=== PATIENT | female | born 1980 | race Caucasian/White ===

== ENCOUNTER 2021-05-28 10:15 | Outpatient (CLI) | payer BC ==
--- NOTE | 2021-05-28 12:21 | Ultrasound Report ---
PROCEDURE: Pelvic w/Transvaginal INDICATIONS: DYSMENORRHEA TECHNIQUE: Real-time scanning was performed of the pelvic organs, with image documentation. Additional endovagi nal scanning was necessary due to incomplete visualization of the adnexal and endometrial structures by transabdominal scanning. COMPARISON: None. FINDINGS: UTERUS: Retroverted, measuring 10.3 x 5 x 5.7 cm. Mildly heterogeneous echotexture. The endometrial t hickness measures 5.9 mm. RIGHT OVARY: 4.5 x 4.4 x 4.1 cm. Color-flow projects over the ovarian tissue. A hypoechoic lesion wit h internal echoes is seen, measuring up to 4.1 cm. LEFT OVARY: 4.7 x 3.6 x 3.5 cm. Color-flow projects over the ovarian tissue. A hypoechoic lesion with internal echoes is seen, measuring up to 3.9 cm. OTHER: None. IMPRESSION: 1.Bilateral hypoechoic lesions in the ovaries, favored to represent endometriomas. Reviewed by: Jose Juan Donaldson MD on 05/28/2021 12:19 PM PST Approved by: Jose Juan Donaldson MD on 05/28/2021 12:19 PM PST Station ID: [id number]
== END 2021-05-28 10:16 | disposition home or self-care (01) ==
LOC: DI 10:15
PROVIDERS: ATTEND Obstetrics & Gynecology
DX: N94.6 Dysmenorrhea, unspecified (principal); R93.89 Abnormal findings on diagnostic imaging of other specified body structures

== ENCOUNTER 2022-06-21 12:59 | Outpatient (CLI) | payer BC ==
--- NOTE | 2022-06-24 09:22 | Mammography Report ---
BILATERAL DIGITAL SCREENING MAMMOGRAM 3D/2D: 06/21/2022 CLINICAL: Routine screening. Baseline exam. Mother with breast cancer. No prior exams were available for comparison. Both breasts are heterogeneously dense, which may obscure small masses (category c / 51-75% glandular tissue). There is a 1.1 cm oval high density focal asymmetry with fine punctate calcifications in the left ramez ast at 1 o'clock middle depth. No other significant masses, calcifications, or other findings are seen in either breast. IMPRESSION: INCOMPLETE: NEEDS ADDITIONAL IMAGING EVALUATION The 1.1 cm oval high density focal asymmetry in the left breast is indeterminate. Additional views w ith possible ultrasound are recommended. Based on Tyrer-Cuzick model (a risk assessment model), the patient's lifetime risk is 35.1% and her 1 0 year risk is 5.4%. If a patient has an elevated risk, a more comprehensive evaluation should be con sidered and/or a referral to a genetic counselor. The [place] [employer], [place] [employer], and NCCN Guidelines advise the consideration of Breast MRI as an adjunct to screening mammog ortiz in patients whose "Lifetime risk to develop breast cancer" is 20% or higher. This exam was interpreted at Station ID: [id number]. NOTE: For mammograms, a report in lay terms will be sent to the patient. Approximately 15% of breast malignancies will not be visualized mammographically. In the management of a palpable breast mass, a negative mammogram must not discourage biopsy of a clinically suspicious lesion. Electronically Signed By: Pradeep Dominguez M.D. aty/penrad:06/21/2022 18:27:17 ACR BI-RADS Category 0: Incomplete 3340F PARENCHYMAL PATTERN: (D) - The breast(s) demonstrate(s) heterogeneously dense fibroglandular parenchy ma. BI-RADS CATEGORY: (0) - 0 Mammo and [place] [id number] Immediate follow-up LATERALITY: (L)
== END 2022-06-21 13:00 | disposition home or self-care (01) ==
LOC: DI 12:59
PROVIDERS: ATTEND Nurse Practitioner Family
DX: Z12.31 Encounter for screening mammogram for malignant neoplasm of breast (principal); R92.8 Other abnormal and inconclusive findings on diagnostic imaging of breast; Z80.3 Family history of malignant neoplasm of breast

== ENCOUNTER 2022-07-12 12:41 | Outpatient (CLI) | payer BC ==
--- NOTE | 2022-07-15 11:44 | Ultrasound Report ---
LIMITED ULTRASOUND OF LEFT BREAST: 07/12/2022 CLINICAL: Patient returns today to evaluate a focal asymmetry in the left breast. Comparison is made to exams dated: 07/12/2022 mammogram and 06/21/2022 mammogram - [facility]. Color flow and real-time ultrasound of the left breast 3-4 o'clock region were performed. Woody scal e images of the real-time examination were reviewed. There is a 1.1 cm x 1.2 cm x 0.8 cm irregular mass with an indistinct margin in the left breast at 4 o'clock middle depth 4 cm from the nipple. This irregular mass is hypoechoic but of mixed echogenici ty with some posterior acoustic shadow. This correlates with mammography findings. Color flow imagin g demonstrates that there is no vascularity present. IMPRESSION: SUSPICIOUS OF MALIGNANCY The 1.1 cm x 1.2 cm x 0.8 cm irregular mass in the left breast most likely is a degenerating fibroade noma and is at a low suspicion for malignancy. The patient reports remote benign biopsy in this darcie st in this area, but no clip is seen on mammogram and it cannot be verified that the mass identified was biopsied. Therefore an ultrasound guided biopsy is recommended unless prior images and records be come available. The patient is agreeable with ultrasound guided biopsy at this time. Findings and recommendations were conveyed to the patient at time of exam. This exam was interpreted at Station ID: [id number]. Electronically Signed By: Isabel vo/:07/12/2022 14:10:41 Ultrasound BI-RADS: 4a Low suspicion for malignancy BI-RADS CATEGORY: (4a) - Low Susp Biopsy [id number] Immediate follow-up LATERALITY: (L)
--- NOTE | 2022-07-15 11:44 | Mammography Report ---
UNILATERAL LEFT DIGITAL DIAGNOSTIC MAMMOGRAM 3D/2D: 07/12/2022 CLINICAL: Patient returns today to evaluate a focal asymmetry in the left breast. Comparison is made to exam dated: 06/21/2022 mammogram - [facility]. The left breast is heterogeneously dense, which may obscure small masses (category c / 51-75% glandul ar tissue). There is a 1.3 cm oval high density mass with a microlobulated margin and heterogeneous rim calcifica tions in the left breast at 4 o'clock anterior depth. This is seen in additional views. No other significant masses or calcifications are seen in the breast. IMPRESSION: INCOMPLETE: NEEDS ADDITIONAL IMAGING EVALUATION The 1.3 cm oval high density mass in the left breast remains indeterminate. An ultrasound is recomme nded. This was performed immediately following this exam. Based on Tyrer-Cuzick model (a risk assessment model), the patient's lifetime risk is 35.1% and her 1 0 year risk is 5.4%. If a patient has an elevated risk, a more comprehensive evaluation should be con sidered and/or a referral to a genetic counselor. The [place] [employer], [employer], and NCCN Guidelines advise the consideration of Breast MRI as an adjunct to screening mammog ortiz in patients whose "Lifetime risk to develop breast cancer" is 20% or higher. This exam was interpreted at Station ID: [id number]. NOTE: For mammograms, a report in lay terms will be sent to the patient. Approximately 15% of breast malignancies will not be visualized mammographically. In the management of a palpable breast mass, a negative mammogram must not discourage biopsy of a clinically suspicious lesion. Electronically Signed By: Isabel vo/:07/12/2022 13:22:12 ACR BI-RADS Category 0: Incomplete 3340F PARENCHYMAL PATTERN: (D) - The breast(s) demonstrate(s) heterogeneously dense fibroglandular parmolinay jaden. BI-RADS CATEGORY: (0) - 0 Ultrasound [id number] Immediate follow-up LATERALITY: (B)
== END 2022-07-12 12:42 | disposition home or self-care (01) ==
LOC: DI 12:41
PROVIDERS: ATTEND Nurse Practitioner Family
DX: N63.23 Unspecified lump in the left breast, lower outer quadrant (principal)

== ENCOUNTER 2022-07-29 13:43 | Outpatient (CLI) | payer BC ==
[2022-07-29] MEDS ORDERED: LIDOCAINE-MPF 1% 5 ML VIAL ONE (13:55)
[2022-07-29] MEDS ORDERED: LIDOCAINE 1%-EPI 1:100000 20 ML MDV ONE (13:55)
[2022-07-29] MEDS ORDERED: LIDOCAINE-MPF 1% 5 ML VIAL TD ONE (18:08)
[2022-07-29] MEDS ORDERED: LIDOCAINE 1%-EPI 1:100000 20 ML MDV SUBQ ONE (18:10)
--- NOTE | 2022-08-01 11:39 | Ultrasound Report ---
ULTRASOUND GUIDED BIOPSY LEFT BREAST USING VACUUM DEVICE WITH MARKING DEVICE INSERTED AND POST MAMMOG RAPHIC IMAGIN07/30/2022 CLINICAL: Left breast mass. PATIENT CONSENT: Risks (minor bleeding, infection, vasovagal reaction and repeat procedure), benefits and alternatives were explained to the patient and written informed consent was obtained. Correlation is made to exams dated: 07/29/2022 mammogram, 07/12/2022 ultrasound, 07/12/2022 mammogram, a nd 06/21/2022 mammogram - [facility]. An ultrasound guided biopsy using real-time ultrasound was performed for the 1.2 cm x 1.1 cm x 0.8 cm mass located in the left breast at 4 o'clock middle depth 4 cm from the nipple. This was described on the previous ultrasound report. The skin was prepped in the usual manner. Local anesthetic was a dministered to the access site. A skin ada was made in the breast. A 12 gauge biopsy needle was pl aced adjacent to the abnormality under ultrasound guidance. Once the needle was documented to be in the correct location, four specimens were obtained using the Mammotome biopsy system. A clip was ins erted into the biopsy cavity and appears offset on mammogram. Post procedure mammographic imaging wa s obtained. The specimens were sent to the laboratory for pathological analysis. IMPRESSION: ULTRASOUND GUIDED BIOPSY BENIGN Please note the clip is significantly offset on post-procedure mammogram. Ultrasound guided biopsy o f the 1.2 cm x 1.1 cm x 0.8 cm mass in the left breast at 4 o'clock middle depth 4 cm from the nipple was performed with Pathology indicating benign fibrocystic changes (FC). Pathology results are disc ordant with imaging findings. Re-biopsy by stereotactic guidance is recommended. This exam was interpreted at Station ID: [id number]. Tonny Dominguez M.D. ,aty/:08/01/2022 10:17:44 BI-RADS CATEGORY: () - Unspecified - other recall n/a LATERALITY: (B)
--- NOTE | 2022-08-01 11:39 | Mammography Report ---
UNILATERAL LEFT DIGITAL DIAGNOSTIC MAMMOGRAM POST-PROCEDURE IMAGING FOR MARKER PLACEMENT: 07/29/2022 CLINICAL: Post left breast ultrasound biopsy clip placement imaging. Comparison is made to exams dated: 07/12/2022 ultrasound, 07/12/2022 mammogram, and 06/21/[address] [facility]. The left breast is heterogeneously dense, which may obscure small masses (category c / 51-75% glandul ar tissue). There is a marker clip in the left breast at 4 o'clock anterior depth. This marker clip placement is migrated from the biopsy site. It is about 4cm anterior, medial, and slightly inferior from the javad mographic mass. IMPRESSION: POST PROCEDURE MAMMOGRAM FOR MARKER PLACEMENT Marker clip placement in the left breast anterior depth is migrated from biopsy site. It is about 4 cm anterior, medial, and slightly inferior from the mammographic mass, either due to clip migration o r US/mammography discordance. Rad-path correlation pending. Based on Tyrer-Cuzick model (a risk assessment model), the patient's lifetime risk is 35.1% and her 1 0 year risk is 5.4%. If a patient has an elevated risk, a more comprehensive evaluation should be con sidered and/or a referral to a genetic counselor. The [place] [employer], [employer], and NCCN Guidelines advise the consideration of Breast MRI as an adjunct to screening mammog ortiz in patients whose "Lifetime risk to develop breast cancer" is 20% or higher. This exam was interpreted at Station ID: [id number]. NOTE: For mammograms, a report in lay terms will be sent to the patient. Approximately 15% of breast malignancies will not be visualized mammographically. In the management of a palpable breast mass, a negative mammogram must not discourage biopsy of a clinically suspicious lesion. Electronically Signed By: Tonny Pantoja M.D. lc/:07/30/2022 09:29:01 ACR BI-RADS Category Post-procedure mammogram for marker placement PARENCHYMAL PATTERN: (D) - The breast(s) demonstrate(s) heterogeneously dense fibroglandular parenchy ma. BI-RADS CATEGORY: () - Unspecified - other recall n/a LATERALITY: (B)
== END 2022-07-29 13:44 | disposition home or self-care (01) ==
LOC: DI 13:43
PROVIDERS: ATTEND Nurse Practitioner Family
DX: N60.12 Diffuse cystic mastopathy of left breast (principal)
CPT/HCPCS: 19083

== ENCOUNTER 2023-01-29 16:05 | Outpatient (CLI) | payer BC | END 2023-01-29 16:06 | disposition home or self-care (01) | LOC: LAB 16:05 | PROVIDERS: ATTEND Nurse Practitioner Family | DX: Z53.9 Procedure and treatment not carried out, unspecified reason (principal) ==

== ENCOUNTER 2023-11-05 09:47 | Outpatient (CLI) | payer BC ==
--- NOTE | 2023-11-06 10:40 | Mammography Report ---
BILATERAL DIGITAL SCREENING MAMMOGRAM 3D/2D WITH EXAGGERATED CC: 11/05/2023 CLINICAL: Routine screening. Family history of breast cancer. Comparison is made to exams dated: 09/02/2022 mammogram - [facility], 07/12 mammogram, and 06/21/2022 mammogram - [facility]. Both breasts are heterogeneously dense, which may obscure small masses (category c / 51-75% glandular tissue). There are benign calcifications in the left breast. There also are biopsy clips in the left breast. No significant masses, calcifications, or other findings are seen in either breast. There has been no significant interval change. IMPRESSION: BENIGN There is no mammographic evidence of malignancy. A 1 year screening mammogram is recommended. Based on Tyrer-Cuzick model (a risk assessment model), the patient's lifetime risk is 35.1% and her 1 0 year risk is 5.9%. If a patient has an elevated risk, a more comprehensive evaluation should be con sidered and/or a referral to a genetic counselor. The [place] [employer], [place] [employer], and NCCN Guidelines advise the consideration of Breast MRI as an adjunct to screening mammog ortiz in patients whose "Lifetime risk to develop breast cancer" is 20% or higher. This exam was interpreted at Station ID: [id number]. NOTE: For mammograms, a report in lay terms will be sent to the patient. Approximately 15% of breast malignancies will not be visualized mammographically. In the management of a palpable breast mass, a negative mammogram must not discourage biopsy of a clinically suspicious lesion. Electronically Signed By: Isabel vo/alberta:11/05/2023 15:10:39 letter sent: No_Letter ACR BI-RADS Category 2: Benign Finding(s) 3342F PARENCHYMAL PATTERN: (D) - The breast(s) demonstrate(s) heterogeneously dense fibroglandular scooby stanley. BI-RADS CATEGORY: (2) - 2 RECOMMENDATION: (ANNUAL) - Recommend routine annual screening mammography. [id number] 1 year screening LATERALITY: (B)
== END 2023-11-05 09:48 | disposition home or self-care (01) ==
LOC: DI.S 09:47
DX: Z12.31 Encounter for screening mammogram for malignant neoplasm of breast (principal); Z80.3 Family history of malignant neoplasm of breast; R92.333 Mammographic heterogeneous density, bilateral breasts; R92.1 Mammographic calcification found on diagnostic imaging of breast